=== PATIENT | female | born 1990 | race Caucasian/White ===

== ENCOUNTER 2025-06-09 12:50 | Outpatient (AMB) | payer BC, SELFPAY ==
--- OUTSIDE RECORDS SUMMARY | 2023-12-27 10:00 | XMS_ITS | Continuity of Care Document ---
Author Organization [facility] Address [address] [place] [address] Dr [address] [place] [address] Phone Care Team Providers Care Rd Manager Name Role Phone Asael WEIR, JANE, Devon CLIFFORD Unavailable U navailable Procedures Procedure Date Offic/outpt E&m Estab 5 Min Trial- Telem edicine CT & [place] Office/Oupt E&M New Pt 45 Mins- CT & [place] Surgical Stockings CVR Reveal Thigh High Duplex Scan-extrem Veins; Comp- CT & [place] Office/Oupt E&M New Pt 30 Mins Advance Directives Directive Yes / No Effective Date File Name No Information Encounters Encounter Description Practice Location Reason(s) For Visit Diagnoses Date Provider Providers Copied on Encounter Offic/outpt E&m Estab 5 Min Trial- Telemedicine [place] & [place] [facility], [address] [place] [address] Dr [address], [id number], [place] tel:[phone] CV[place] - [place] - [place] Chronic venous hypertension (idiopathic) with other complications of bilateral lower extremityCramp and spasmRestless legs syndromePrurit us, unspecified 4 Asael WEIR, VENESSA LARA. [address] [facility], [address], [facility] [place], [id number] , [place]. tel:[phone] Office/Oupt E&M New Pt 45 Mins- CT & [place] [facility], [address] [place] [address] [address], [place], [id number], tel:[phone] [facility] - [place] Localized edemaVaricose veins of bilateral lower extremities with other complicationsP ain in right lower legPain in left lower legPain in right legRestless legs syndromePrurit us, unspecifiedPai n in left legCramp and spasm 4 Asael WEIR, JANE, VENESSA Osorio. [address] [place] [address], [place] [address], [place], [id number] , [place]. tel:[phone] [facility], [address] [place] [address] Dr [address], [place], [id number], [place] [phone] [place] - [place] Varicose veins of bilateral lower extremities with pain 4 FLIP Vyas MDT, VENESSA Osorio. [address] [place] [address], [place], [id number] , [place]. tel:[phone] Referring Provider: Devon Vyas MD, JANE, MILANA, [address] [place] [address], [place], [address] . tel:[phone] Office/Oupt E&M New Pt 30 Mins [facility], [address] [place] [address] Dr [address], [place], [id number], tel:[phone] CV[place] - [place] Chronic venous hypertension w/o comp of bilateral low extrmPruritus, unspecifiedFla il joint, unspecified joint 3 Evgeny WEIR FACS RVT VENESSA Hendrix. [address] [place] [address], [place] [address], [place], [id number], [place]. [phone] Referring Provider: Marcos Pepper MD FACS [facility], [address] [place] [address], [place], [id number]. tel:[phone] Family History Family Member Type Diagnosis Age At Onset No Information Payers Payer name Insurance type Covered republican ID Authormichellea tijose guadalupe(s) BS TABITHA [id number] Social History Type Description Quantity Date Captured Comments Alcohol Use Details Unknown Caffeine Use Details Unknown Tobacco Use Status Current non-smoker Smoking Status Never Smoker Non-Smoking Tobacco Use Details : No Details Available : No Details Available Sex Female Vital Signs Date / Time: Height Weight BMI Pulse Rate Blood Pressure Temperature Respiratory Rate Body Surface Area Head Circumference Head Circ. Percentile Wt./Chente. Percentile BMI percentile Pulse Ox Inhaled Ox 97.520 kg (215.00 lbs) 33.7 8 kg/m eter (2) Chief Complaint And Reason For Visit No Information Reason For Referral Reason For Referral No Information Plan Of Treatment Date Type Action Status Goal Diet education completed Goal Diet education completed Referral Ordered: Weight management: Referral to physician timeframe: 3 Months (related to Body mass index (BMI) 33.0-33.9, adult) ordered Referral Ordered: Weight management: Referral to physician timeframe: 3 Months (related to Body mass index (BMI) 32.0-32.9, adult) ordered History Of Present Illness Encounter Date Complaint History Of Prese nt Illness No Information Functional Status Date Functional Assessmen t No Information Instructions Date Instruction Additional Infor hue Pre and post instruc tions reviewed and provided Related to Chronic venous hypertension (idiopathic) with other complications of bilateral lower extremity Patient education booklet given Related to Chronic venous hypertension (idiopathic) with other complications of bilateral lower extremity Lifestyle education Related to B sheldon mass index (BMI) 33.0-33.9, adult Patient education booklet given Related to Varicose veins of bilateral lower extremities with other complications Pre and post instruc tions reviewed and provided Related to Varicose veins of bilateral lower extremities with other complications Giving Encouragement to exercise Related to Body mass index (BMI) 33.0-33.9, adult Diet education Related to Body mass index (BMI) 33.0-33.9, adult Patient education booklet given Related to Chronic venous hypertension w/o comp of bilateral low extrm Lifestyle education Related to B sheldon mass index (BMI) 32.0-32.9, adult Giving Encouragement to exercise Related to Body mass index (BMI) 32.0-32.9, adult Diet education Related to Body mass index (BMI) 32.0-32.9, adult Assessments Type Assessment Date assessment Cramp and spasm assessment Pruritus, unspecified assessment Chronic venous hyper tension (idiopathic) with other complications of bilateral lower extremity assessment Restless legs syndrome 24 Patient Care Teams Name Effective Dates (start - stop) Status Members No Information
[2025-06-09 12:54] VITALS: BP 150/92; PULSE 86; TEMP 36.2; O2SAT 97; BMI 32.7
--- NOTE | 2025-06-09 12:54 | A.OFFPC_ITS ---
Vital Signs 06/09/25 12:54 Height 5 ft 7 in Weight 208 lb 8 oz BMI 32.7 BP 150/92 H Blood Pressure Location Rt brachial Position Sitting Pulse 86 Pulse Source Pulse Oximeter Temp 97.1 F Temp Source Temporal Artery Scan Pulse Oximetry (%) 97 Oxygen Delivery Method Room Air Intake Visit Reasons: NEONATAL PEDIATRIC NURSE-Headache Allergies No Known Allergies (No Known Allergies*) Allergy (Unverified 06/09/25 12:57) Medication List - Last Reconciled 06/09/25 by April Guerrero MD biotin mcg PO norgestimate-ethinyl estradiol 0.25-0.035 mg 1 tab PO DAILY Tobacco use date assessed: 06/09/25 Dental Screening Dental Screen Date: 06/09/25 Did you have a dental visit in the last 12 months?: Yes Did you have a dental problem in the last 6 months where you did not have access to dental care?: No Was dental information given to patient?: Patient has dentist HPI HPI Comments History of Present Illness Details The patient is a 35-year-old female presenting to establish care and for evaluation of worsening arm numbness. She reports that numbness began in her right arm during approximately five years ago, which her mechanics supervisor attributed to a retroverted uterus. The symptoms have since worsened and now affect both arms. The numbness occurs in any position while sleeping, waking her from sleep, and is also triggered by repetitive motions such as driving, eating, or washing dishes, requiring her to take breaks and switch hands. The paresthesia involves the entire arm and hand, typically starting in the hand and progressing up the arm, and can also affect the upper arms. She has not previously seen a neurologist for this issue. The patient has a history of rosacea, for which she has seen a customer technical services manager. She was prescribed a cream but stopped using it after a week because it caused her to break out. 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 The patient reports experiencing constipation, bloating, and occasional acid reflux. Her last Pap smear was on April 16 and was negative. Her last tetanus shot was in 2019 and is up to date. She declines the flu and COVID-19 vaccines. The patient is adopted and does not know her biological family medical history. She has never smoked. She takes biotin and a multivitamin. PFSH Surgical History H/O LEEP Family History Mother Substance abuse Father Substance abuse Social History Household Members: Spouse and Children Housing: House Alcohol intake: current Patient Tobacco Use Status: Never used Tobacco e-Cigarette/Vaping Use: Never Used service: No Current occupational status: employed Current occupation: [employer] Cognitive needs: No Hearing needs: No Vision needs: No Questionnaire PHQ-9 Over the last 2 weeks, how often have you been bothered by any of the following problems? 1. Little interest or pleasure in doing things: not at all 2. Feeling down, depressed, or hopeless: not at all 3. Trouble falling or staying asleep, or sleeping too much: more than half the days 4. Feeling tired or having little energy: more than half the days 5. Poor appetite or overeating: more than half the days 6. Feeling bad about yourself - or that you are a failure or have let yourself or your family down: not at all 7. Trouble concentrating on things, such as reading the newspaper or watching television: not at all 8. Moving or speaking so slowly that other people could have noticed. Or the opposite - being so fidgety or restless that you have been moving around a lot more than usual: not at all 9. Thoughts that you would be better off or of hurting yourself in some way: not at all Total score: 6 Depression Screening Interpretation: Positive Depression Screening Done: Yes 75770 - PHQ-9 Billing: Yes Source: Developed by Drs. Devon Londono, Silva Hernandez, Joe Peng and colleagues, with an educational magda from [facility]. Thrive Questionnaire Date Thrive assessed: 06/09/25 I am a: Patient What is your living situation today?: I have a steady place to live Within the past 12 months, did the food you bought not last and you didn't have the money to get more?: Never true Within the past 12 months, did you worry whether your food would run out before you got money to buy more?: Never true Do you have trouble paying for medicines?: No Do you have trouble getting transportation to medical appointments?: No Do you have trouble paying your heating and electricity bill?: No Do you have trouble taking care of your child, family member or friend?: No Do you have trouble with day-to-day activities such as bathing, preparing meals, shopping, managing finances, etc.?: No Are you currently unemployed and looking for a job?: No Are you interested in more education?: No Please select the resources that you would like help with: None Currently or been in a relationship where the following occur: No concerns reported THRIVE Score: 0 AUDIT C Alcohol Use Questionnaire (AUDIT-C) 1. How often do you have a drink containing alcohol?: 2-3 times a week 2. How many drinks containing alcohol do you have on a typical day when you are drinking?: 3 or 4 3. How often do you have six or more drinks on one occasion?: Monthly Total Score: 6 SIS-7 AMB Questionnaire SIS-7 Date SIS - 7 assessed: 06/09/25 Feeling nervous, anxious, or on edge: 0 = Not at all Not being able to stop or control worryin = Not at all Worrying too much about different things: 0 = Not at all Trouble relaxin = Not at all Being so restless that it is hard to sit still: 0 = Not at all Becoming easily annoyed or irritable: 0 = Not at all Feeling afraid as if something awful might happen: 0 = Not at all Total SIS-7 score (0-4 normal; 5-9 mild; 10-14 moderate; 15-21 severe): 0 Source: Developed by Drs. Devon Londono, Silva Hernandez, Joe Peng and colleagues, with an educational magda from [facility]. SIS-7 Assessment Billing SIS-7 Assessment Tool: SIS-7 Assessment 44421 Review of Systems Const Details: As per HPI. Physical exam (Primary Care) Vital Signs: Last Vital Signs Temp 97.1 F 06/09/25 12:54 Pulse 86 06/09/25 12:54 BP 150/92 H 06/09/25 12:54 Pulse Ox 97 06/09/25 12:54 Oxygen Delivery Method Room Air 06/09/25 12:54 BMI result Body Mass Index 32.7 Tobacco/Smoking Status: Tobacco use Status Tobacco use date assessed 06/09/25 06/09/25 13:01 Patient Tobacco Use Status Never used Tobacco 06/09/25 13:01 e-Cigarette/Vaping Use Never Used 06/09/25 13:01 PHQ-9: PHQ-9 Score PHQ-9: Total score 6 06/09/25 13:01 Depression Screening Interpretation: Positive Thrive Assessment: Date of Thrive Assessment Date Thrive assessed 06/09/25 06/09/25 13:01 Currently or been in a relationship where the following occur: No concerns reported Const Other: Pertinent findings are in BOLD GENERAL APPEARANCE NAD, activity normal for age, well developed/ well nourished, no cyanosis, pallor, or diaphoresis. EYES lids/conjunctiva normal. EARS/NOSE/THROAT Mucous membranes moist, nares normal, lips/teeth normal uvula midline without oral pharyngeal erythema, exudate or swelling TMs normal bilaterally. No lymphangitis/lymphedema. HEAD/NECK normocephalic atraumatic, no facial trauma, neck is supple. RESPIRATORY respiratory effort normal, speaks in full sentences, no tripod position, no accessory muscle use. Lungs clear to auscultation without rhonchi, wheezes, rales CARDIAC Regular rate and rhythm, no edema. ABDOMINAL Soft, ND/NT. No evidence of fluid wave. No pulsatile masses on exam, rebound tenderness, Cleary sign or pain over Mcburney's point. MUSCLES/EXTREMITIES No abnormal range of motion, no swelling. SKIN Warm, pink and dry. No rashes, dermatoses, petechiae or lesions. Facial erythema. NEUROLOGICAL Speech is clear and appropriate. Normal level of consciousness. Gait and coordination are normal. 5/5 strength in all extremities. Tinel and Phalen test negative. PSYCH Normal mood and affect. Judgement/competence is appropriate Coding Level of Care Code New Pt Level 4 (71946) New Pt Prev Care 18-39yr(14560 Diagnoses Bilateral arm numbness and tingling while sleeping R20.0; R20.2 Healthcare maintenance Z00.00 Rosacea L71.9 Bloating R14.0 Elevated blood pressure reading R03.0 Additional Codes SIS-7 Assessment Billing - SIS-7 Assessment Tool: SIS-7 Assessment 37186 ([id number]) PHQ-9 - 97492 - PHQ-9 Billing: Yes ([id number]) Time Spent (min) 40 Assessment & Plan Assessment & Plan (1) Bilateral arm numbness and tingling while sleeping: Code(s): R20.0 - Anesthesia of skin; R20.2 - Paresthesia of skin Category: Medical Plan: - The patient's symptoms of bilateral arm numbness, which began 5 years ago and have worsened, are concerning for nerve compression. - While carpal tunnel syndrome is a possibility, the involvement of the upper arms suggests potential impingement in other areas as well. - An electromyography (EMG) of the upper extremities will be ordered to help identify which nerves are compressed and the location of the compression. - A referral will be placed for a neurology consultation. - Cervical Xray was ordered to rule out degenrative changes affecting cervical spine and causing numbness in her arms. - A vitamin B12 level and TSH will be checked as part of the initial lab workup, as a deficiency can sometimes cause paresthesia. (2) Healthcare maintenance: Code(s): Z00.00 - Encounter for general adult medical examination without abnormal findings Category: Medical Plan: CBC, CMP, Lipid panel, A1C, TSH w T4, vit D. Ordered. Shingles 2 doses when >50 yo COVID: two doses. Tdap: Next due 2029. Pneumococcal: >50 yo. 18-49 with CKD, lung disease, weakened immune system, Heart disease, DM, cochlear implant. NI. Flu vaccine: Declined. Colonoscopy: 45-75. At 44, unaware of any family history of colon cancer as she was adopted. AAA: 65 -75. Not indicated as never smoked. CT lun - 80. Not indicated as never smoked. HPV: Follows with chaplaincy with her last pap smear being Mar 2025 and the patient reports it was negative. HIV: Ordered today. HCV: Ordered today. Dexa: Not indicated. Mammogram: At 39. (3) Rosacea: Code(s): L71.9 - Rosacea, unspecified Category: Medical Plan: - The patient has an established diagnosis of rosacea and visible facial erythema. - Extensive counseling was provided on the potential link between diet and inflammatory skin conditions. - It was recommended that she try an elimination diet, starting with avoiding dairy for one week, followed by trials of avoiding gluten, sugar, alcohol, nuts and red meat to identify potential triggers. - The patient is advised to follow up with her customer technical services manager for ongoing management. (4) Bloating: Code(s): R14.0 - Abdominal distension (gaseous) Category: Medical Plan: The patient advised to follow an eleminatory diet to identify triggers of her bloating. (5) Elevated blood pressure reading: Code(s): R03.0 - Elevated blood-pressure reading, without diagnosis of hypertension Category: Medical Plan: - The patient had a single elevated blood pressure reading in the office today, which she states is not typical for her. - The patient is advised to monitor her blood pressure at home or at a local pharmacy and to keep a log of the readings to assess the trend. - If her blood pressure continues to be high on subsequent checks, treatment will be considered at her next visit. Plan The patient is here to establish care, primarily for evaluation of bilateral arm numbness that has been worsening over the last five years. I explained that I suspect nerve compression and that we need to investigate further. I have ordered an EMG and placed a referral to Neurology to determine the cause of her symptoms. We also discussed her history of rosacea and GI symptoms (bloating, constipation). I provided extensive counseling on the potential connection between diet and inflammatory conditions, suggesting she try an elimination diet to identify triggers like dairy, gluten, and sugar. I emphasized this is a unefw-awq-nckmt process to learn what her body tolerates. Her blood pressure was elevated today, so I advised her to monitor it at a local pharmacy and keep a log for us to review. I have ordered baseline fasting labs, including a CBC, CMP, lipid panel, TSH, vitamin D, and B12. She understands the plan and will follow up with specialists as referred. We will have a follow-up appointment in six months to review everything. Orders: Orders NE electromyogram (EMG) Today R20.0 - Anesthesia of skin, R20.2 - Paresthesia of skin Comprehensive Met. Panel Today R20.0 - Anesthesia of skin, R20.2 - Paresthesia of skin HIV Ab/Ag Today R20.0 - Anesthesia of skin, R20.2 - Paresthesia of skin Hepatitis C Antibody Reflex Today R20.0 - Anesthesia of skin, R20.2 - Paresthesia of skin Vitamin D 25-OH Total Today R20.0 - Anesthesia of skin, R20.2 - Paresthesia of skin Complete Blood Count no Diff Today R20.0 - Anesthesia of skin, R20.2 - Paresthesia of skin Hemoglobin A1c Today R20.0 - Anesthesia of skin, R20.2 - Paresthesia of skin Lipid Panel Today R20.0 - Anesthesia of skin, R20.2 - Paresthesia of skin Vitamin B12 and Folate Today D64.9 - Anemia, unspecified, R20.0 - Anesthesia of skin, R20.2 - Paresthesia of skin TSH reflex Free T4 Today R20.0 - Anesthesia of skin, R20.2 - Paresthesia of skin XR cervical spine 2V Today R20.0 - Anesthesia of skin, R20.2 - Paresthesia of skin Referrals Neurology Referral R20.0 - Anesthesia of skin, R20.2 - Paresthesia of skin
--- OUTSIDE RECORDS SUMMARY | 2025-06-09 15:27 | XMS_ITS | Clinical Summary ---
Author Organization [id number] Address [address] [facility] [address] [place] [address] Care Team Providers Care Paper Tester Name Role Phone Unavailable Primary Care Provider Unavailabl e Social History Tobacco Use Types Packs/Day Years Used Date Smoking Tobacco: Never Assessed Comments Unknown Sex and Gender Information Value Date Recorded Sex Assigned at Female 05/28/2022 10:36 AM EDT Legal Sex Male 10:36 AM EDT Gender Identity Not on file Sexual Orientation Straight 05/28/2022 10 :36 AM EDT Plan of Treatment Health Maintenance Due Date Last Done Comments Depression Screening 1989 Lipid Panel 1989 Disability Screening 1989 Alcohol/Substance Use Screening 2001 Tobacco Screening 2001 Family Planning (PISQ) 2004 HPV Vaccines (1 - 3-dose series) 2004 DTaP/Tdap/Td Vaccines (1 - Tdap) 2008 Hepatitis B Vaccines (1 of 3 - 19+ 3-dose series) 2008 Pap Smear 2010 Cervical Cancer Screening 2019 HPV/Cotest 2019 COVID-19 Vaccine (1 - 2023-2 5 season) 2025 Influenza Vaccine (#1) 2025 Zoster Vaccines (1 of 2) 2039 RSV Patients and Pa tients Aged 60 years or older (1 - 1-dose 75+ series) 2064 HIB Vaccines Aged Out No longer eligi ble based on patient's age to complete this topic Hepatitis A Vaccines Aged Out No long er eligible based on patient's age to complete this topic IPV Vaccines Aged Out No longer eligi ble based on patient's age to complete this topic Meningococcal B Vaccine Aged Out No l onger eligible based on patient's age to complete this topic Meningococcal Vaccine Aged Out No leonard johanne eligible based on patient's age to complete this topic Pneumococcal Vaccine: Pediat rics (0 to 5 Years) and At-Risk Patients (6 to 49) Years Aged Out No longer eligible b ased on patient's age to complete this topic RSV under 20 months Aged Out No longe r eligible based on patient's age to complete this topic Rotavirus Vaccines Aged Out No longer eligible based on patient's age to complete this topic
--- OUTSIDE RECORDS SUMMARY | 2025-06-09 15:27 | XMS_ITS | Encounter Summary ---
Author Organization [employer] Address [address] [facility] [address] [place] [address] Care Team Providers Care Lead Programmer Name Role Phone Unavailable Primary Care Provider Unavailabl e Encounter Details Date Type Department Care Team (Latest Contact Info) Description 04/21/2019 Abstract C CONVERSIONS Dental, Provider, DDS Social History Tobacco Use Types Packs/Day Years Used Date Smoking Tobacco: Never Assessed Comments Unknown Sex and Gender Information Value Date Recorded Sex Assigned at Female 05/28/2022 10:36 AM EDT Legal Sex Male 10:36 AM EDT Gender Identity Not on file Sexual Orientation Straight 05/28/2022 10 :36 AM EDT documented as of this encounter Plan of Treatment Not on file documented as of this encounter Visit Diagnoses Not on filedocumented in this encounter
== END 2025-06-09 13:36 | disposition home or self-care (01) ==
LOC: HO.HMCH 12:51
PROVIDERS: PCP Family Medicine; Visit Provider Internal Medicine
DX: Z00.00 Encounter for general adult medical examination without abnormal findings (principal); R20.0 Anesthesia of skin; R20.2 Paresthesia of skin; L71.9 Rosacea, unspecified; R14.0 Abdominal distension (gaseous); R03.0 Elevated blood-pressure reading, without diagnosis of hypertension

== ENCOUNTER → 2025-06-09 12:50 | Outpatient (BNVA) | payer BC, SELFPAY | PROVIDERS: PCP Family Medicine; Visit Provider Internal Medicine | DX: Z00.00 Encounter for general adult medical examination without abnormal findings (principal); R20.0 Anesthesia of skin; L71.9 Rosacea, unspecified; K59.00 Constipation, unspecified; K21.9 Gastro-esophageal reflux disease without esophagitis; R20.2 Paresthesia of skin; R14.0 Abdominal distension (gaseous); R03.0 Elevated blood-pressure reading, without diagnosis of hypertension | CPT/HCPCS: 96127 ==